=== PATIENT | male | born 1935 | race Caucasian/White ===

== ENCOUNTER → 2016-12-09 | Outpatient (REF) | payer MEDICARE, BC ==
[2016-12-09 12:42] LABS: MEAN CORPUSCULAR HEMOGLOBIN 32.6 pg (27.0-33.0); MEAN CORPUSCULAR HGB CONC 33.8 g/dl (32.0-36.5); MEAN CORPUSCULAR VOLUME 96.3 fl (80.0-96.0); RED CELL DISTRIBUTION WIDTH 12.3 % (11.5-14.5); WHITE BLOOD COUNT 7.3 K/mm3 (4.0-10.0)
[2016-12-09 13:02] LABS: ALBUMIN 3.8 GM/DL (3.2-5.2); ALBUMIN/GLOBULIN RATIO 1.15 (1.00-1.93); BILIRUBIN,TOTAL 0.5 MG/DL (0.2-1.0); CALCIUM LEVEL 9.5 MG/DL (8.8-10.2); CREATININE FOR GFR 1.25 MG/DL (0.70-1.30); GLOMERULAR FILTRATION RATE 59.2 (>35); TOTAL PROTEIN 7.1 GM/DL (6.4-8.2)
[2016-12-09 13:27] LABS: POTASSIUM SERUM 5.3 MEQ/L (3.5-5.1)
== END ==
LOC: M SFHCADAM 08:02
PROVIDERS: ATTEND Family Medicine
DX: E53.8 Deficiency of other specified B group vitamins (principal); I25.10 Atherosclerotic heart disease of native coronary artery without angina pectoris; E78.4 Other hyperlipidemia

== ENCOUNTER → 2017-07-16 | Outpatient (CLI) | payer MEDICARE, BC | LOC: M ADAMS 14:08 | DX: J40 Bronchitis, not specified as acute or chronic (principal) | CPT/HCPCS: 71020 ==

== ENCOUNTER → 2018-04-26 | Outpatient (REF) | payer MEDICARE, BC ==
[2018-04-26 12:49] LABS: HEMATOCRIT 46.9 % (42.0-52.0); HEMOGLOBIN 15.5 g/dl (13.5-17.5); MEAN CORPUSCULAR HEMOGLOBIN 31.9 pg (27.0-33.0); MEAN CORPUSCULAR VOLUME 96.5 fl (80.0-96.0); PLATELET COUNT, AUTOMATED 214 10^3/uL (150-450); RED BLOOD COUNT 4.86 10^6/uL (4.30-6.10); RED CELL DISTRIBUTION WIDTH 12.4 % (11.5-14.5); WHITE BLOOD COUNT 7.1 10^3/uL (4.0-10.0)
[2018-04-26 13:25] LABS: ALBUMIN/GLOBULIN RATIO 1.33 (1.00-1.93); ALKALINE PHOSPHATASE 66 U/L (45-117); ALT/SGPT 22 U/L (12-78); ANION GAP 7 MEQ/L (8-16); AST/SGOT 18 U/L (7-37); BILIRUBIN,TOTAL 0.4 MG/DL (0.2-1.0); BLOOD UREA NITROGEN 21 MG/DL (7-18); CALCIUM LEVEL 9.6 MG/DL (8.8-10.2); CARBON DIOXIDE LEVEL 30 MEQ/L (21-32); CHLORIDE LEVEL 106 MEQ/L (98-107); CHOLESTEROL LEVEL 138 MG/DL (<200); CREATININE FOR GFR 1.18 MG/DL (0.70-1.30); GLOMERULAR FILTRATION RATE > 60.0 (>35); GLUCOSE, FASTING 99 MG/DL (70-100); HDL CHOLESTEROL 75 MG/DL (>40); LDL CHOLESTEROL 47 MG/DL (<100); NON-HDL-C 63 MG/DL; POTASSIUM SERUM 5.5 MEQ/L (3.5-5.1); SODIUM LEVEL 143 MEQ/L (136-145); TRIGLYCERIDES LEVEL 81 MG/DL (<150)
== END ==
LOC: M SFHCADAM 10:47
DX: I25.10 Atherosclerotic heart disease of native coronary artery without angina pectoris (principal); E78.49 Other hyperlipidemia; E53.8 Deficiency of other specified B group vitamins
CPT/HCPCS: 82607

== ENCOUNTER → 2018-11-24 | Outpatient (REF) | payer MEDICARE, BC ==
[2018-11-24 13:39] LABS: HEMATOCRIT 47.2 % (42.0-52.0); HEMOGLOBIN 15.5 g/dl (13.5-17.5); MEAN CORPUSCULAR HGB CONC 32.8 g/dl (32.0-36.5); MEAN CORPUSCULAR VOLUME 97.3 fl (80.0-96.0); PLATELET COUNT, AUTOMATED 272 10^3/uL (150-450); RED BLOOD COUNT 4.85 10^6/uL (4.30-6.10); WHITE BLOOD COUNT 7.1 10^3/uL (4.0-10.0)
[2018-11-24 13:42] LABS: APPEARANCE, URINE CLEAR (CLEAR); BACTERIA, URINE AUTO NEGATIVE (NEGATIVE); BILIRUBIN, URINE AUTO NEGATIVE (NEGATIVE); BLOOD, URINE BLOOD NEGATIVE (NEGATIVE); COLOR, URINE YELLOW (YELLOW); GLUCOSE, URINE (UA) AUTO NEGATIVE (NEGATIVE); KETONE, URINE AUTO NEGATIVE (NEGATIVE); LEUKOCYTE ESTERASE, URINE AUTO NEGATIVE (NEGATIVE); NITRITE, URINE AUTO NEGATIVE (NEGATIVE); PROTEIN, URINE AUTO NEGATIVE (NEGATIVE); RBC, URINE AUTO 0 /HPF (0-3); SPECIFIC GRAVITY URINE AUTO 1.015 (1.002-1.035); SQUAMOUS EPITHELIAL CELL UR AU 0 /HPF (0-6); UROBILINOGEN, URINE AUTO 0.2 mg/dL (0.0-2.0); WBC, URINE AUTO 0 /HPF (0-3)
[2018-11-24 14:01] LABS: ALBUMIN 4.1 GM/DL (3.2-5.2); BILIRUBIN,TOTAL 0.5 MG/DL (0.2-1.0); CREATININE FOR GFR 1.24 MG/DL (0.70-1.30); FREE T4 1.02 NG/DL (0.76-1.46); GLOMERULAR FILTRATION RATE 59.4 (>35); POTASSIUM SERUM 4.4 MEQ/L (3.5-5.1); THYROID STIMULATING HORMONE 0.859 uIU/ML (0.358-3.740); TOTAL PROTEIN 6.8 GM/DL (6.4-8.2)
== END ==
LOC: M SFHCADAM 08:49
PROVIDERS: ATTEND Family Medicine
DX: R39.198 Other difficulties with micturition (principal); Z87.440 Personal history of urinary (tract) infections; R53.83 Other fatigue; I11.9 Hypertensive heart disease without heart failure; E53.8 Deficiency of other specified B group vitamins; Z12.5 Encounter for screening for malignant neoplasm of prostate
CPT/HCPCS: 80053; 81001; 82607; 84439; 84443; 85027; 87086; G0103

== ENCOUNTER → 2018-11-24 | Outpatient (CLI) | payer MEDICARE, BC ==
--- NOTE | 2018-11-24 11:29 | REP ---
Chest x-ray: Three views. History: Fatigue. Comparison study: July 16, 2017. Findings: Three views of the chest show clear symmetrically aerated lungs and sharp pleural angles. Cardiomediastinal silhouette is unremarkable. There are degenerative changes in the thoracic spine. No acute bony abnormality is seen. Impression: No active disease. Electronically Signed by Zeke Dooley MD 11/24/2018 11:20 A
== END ==
LOC: M ADAMS 09:06
PROVIDERS: ATTEND Family Medicine
DX: M51.34 Other intervertebral disc degeneration, thoracic region (principal); R53.83 Other fatigue; Z12.5 Encounter for screening for malignant neoplasm of prostate
CPT/HCPCS: 71046; 80053; 81001; 82607; 84439; 84443; 85027; 87086; G0103

== ENCOUNTER → 2019-04-17 | Outpatient (RCR) | payer MEDICARE, BC ==
--- NOTE | 2019-03-30 10:55 | CARECAPL ---
Assessment Account #s: Initial Assessment General Diagnoses: CABG (4 vessel) Date of event: Feb 02, 2019 Physician: Frantz Suarez Allergies: Coded Allergies: No Known Allergies (Unverified , 03/30/19) Date Entered Program: Mar 30, 2019 Risk strat for cardiac event: High Exercise Date: Mar 30, 2019 Assessment: Initial Assessment Stages of change: action Exercise Prescription Plan to educate about cardiac disease, and to build strength and endurance through a monitored exercise program Modalities initiated: Treadmill (will add), Cardio-Strider, Nustep (will add), Arm Aerometer (will add), Dumbells (will add), Recumbent Bike (will add) Frequency: 2-3 Duration (Minutes) 30 - 60 minutes total exercise a day. 15 - 20 work intervals in minutes. PRN rest intervals in minutes. Functional Capacity Goal Sustained Metabolic Equivalent of a task (MET) goal of 3-4 for 30-60 minutes. Intensity: 3-Moderate Progression (METS) Increase by: .5 METS every: 2-3 sessions Hypertension: Yes Hypertension controlled with: Other (exercise) Resting 128/80 Medications Scheduled Aspirin (Ecotrin), 1 TAB PO DAILY, (Reported) Clopidogrel Bisulfate (Plavix), 1 TAB PO DAILY, (Reported) Cyanocobalamin (Vitamin B-12) (Vitamin B-12), 1,000 MCG PO DAILY, (Reported) Ferrous Gluconate (Ferrous Gluconate), 1 TAB PO BID, (Reported) Lisinopril (Lisinopril), 10 MG PO DAILY, (Reported) Metoprolol Succinate (Metoprolol Succinate), 25 MG PO DAILY, (Reported) Simvastatin (Simvastatin), 1 TAB PO QPM, (Reported) Tamsulosin HCl (Flomax), 0.4 MG PO DAILY, (Reported) Scheduled PRN Docusate Sodium (Stool Softener), 100 MG PO DAILY PRN for CONSTIPATION, (Reported) Hydrocodone/Acetaminophen (Hydrocodone-Acetamin 5-325 mg), 1-2 TAB PO Q4-6HP PRN for pain, (Reported) Naproxen Sodium (Aleve), 220 MG PO Q6HP PRN for PAIN, (Reported) Target Goals Individual exercise Rx (1) BP 140/90 or 130/80 if DM or CKD (1) Aerobic active 30+min 5 days per week (1) Nutrition Date: Mar 30, 2019 Assessment: Initial Assessment Stages of change: action Lipid- med/supplement Simavastatin Diabetes Diabetes: No Special Diet: low salt, low-fat Vitamin/Supplements: Vitamin B Diet Access Tool: Rate your plate Score: 49 Intervention Diet Class: No (will see during program) Target goal LDL-C<100 if triglycerides are >200 Non-HDL-C should be <130 (1) LDL-C<70 for high risk patients (4) HbA1c<7% (1) BMI<25 Waist cir<40in M/<35in F (1) Education Date: Mar 30, 2019 Assessment: Initial Assessment Knowledge Test Score: 2 Stages of change: Pre-contemplation Family Support: Yes Tobacco use: No Quit: never smoked Tobacco Use Smokeless tobacco: No Target Goals Complete cessation of tobacco use (1). Psychosocial Date: Mar 30, 2019 Assessment: Initial Assessment Psych Test (Initial/Discharge) Tool Used: Other (PHQ-9) Score: 1 (minimal depression) Stages of change: action Target Goal Assess presence or absence of depression using a valid screening tool (1). Maximize coping skills (2). Positive support system (2). Patient/Program Goal Preventative Medication: Yes Aspirin, Yes Clopidogrel, Yes Beta blockade, Yes Statin/OTR lipid Lowering Fall Risk Assess: No Provider Assessment Provider Assessment: Proceed with rehab Cindy Taylor RN Mar 30, 2019 10:55
[~2019-04-17] MED LIST: B-12100010 PO; DOCU-129 PO; ECOT81TA5 PO; FERR325T16 PO; FLOM0.4C39 PO; HYDR-3713 PO; LISI10TA4 PO; METO1TAB32 PO; NAPR220C14 PO; PLAV1TAB2 PO; SIMV40TA2 PO
--- NOTE | 2019-04-17 13:30 | CARECAPL ---
Assessment Account #s: Re-Assessment I General Diagnoses: CABG Date of event: Feb 02, 2019 Physician: Frantz Suarez Allergies: Coded Allergies: No Known Allergies (Unverified , 03/30/19) Date Entered Program: Mar 30, 2019 Risk strat for cardiac event: High Exercise Date: Apr 17, 2019 Assessment: Re-Assessment I Stages of change: Contemplate Exercise Prescription Plan educate on cardiovascular disease and increase endurance, strength and flexibility through monitored exercise program. Modalities initiated: Treadmill (speed 1.2 incline 1.5 for 10 minutes mets 2.09 RPE 2), Nustep (resistance of 5 for 15 minutes mets 3.1 RPE 2), Arm Aerometer (resistance of 1.5 for 10 minutes mets 2.5 RPE 2), Dumbells (4 pound weights for 6 minutes 1 set 15 reps RPE 3), Recumbent Bike (resistance of 1 for 7 minutes mets 2.6 RPE 2) Frequency: 2-3 Duration (Minutes) 30 - 60 minutes total exercise a day. 15 - 20 work intervals in minutes. PRN rest intervals in minutes. Functional Capacity Goal Sustained Metabolic Equivalent of a task (MET) goal of 3.5-4.5 for 15-20 minutes. Intensity: 3-Moderate Progression (METS) Increase by: 0.5 METS every: 3-5 sessions Angina with ex: No Target Heart Rate Rest +35-40 per beta victorina therapy Resistance Training: Yes Weight (pounds): 4 Reps: 12-15 Hypertension: Yes Hypertension controlled with: Medication Resting 130/84 Peak Exercise BP 142/90 Meds Metoprolol and lisinopril Medications Scheduled Aspirin (Ecotrin), 1 TAB PO DAILY, (Reported) Clopidogrel Bisulfate (Plavix), 1 TAB PO DAILY, (Reported) Cyanocobalamin (Vitamin B-12) (Vitamin B-12), 1,000 MCG PO DAILY, (Reported) Ferrous Gluconate (Ferrous Gluconate), 1 TAB PO BID, (Reported) Lisinopril (Lisinopril), 10 MG PO DAILY, (Reported) Metoprolol Succinate (Metoprolol Succinate), 25 MG PO DAILY, (Reported) Simvastatin (Simvastatin), 1 TAB PO QPM, (Reported) Tamsulosin HCl (Flomax), 0.4 MG PO DAILY, (Reported) Scheduled PRN Docusate Sodium (Stool Softener), 100 MG PO DAILY PRN for CONSTIPATION, (Reported) Hydrocodone/Acetaminophen (Hydrocodone-Acetamin 5-325 mg), 1-2 TAB PO Q4-6HP PRN for pain, (Reported) Naproxen Sodium (Aleve), 220 MG PO Q6HP PRN for PAIN, (Reported) Intervention Education: Low NA diet (patient describes low-sodium diet and he adds no salt to his food and he uses no can or prepared frozen vegetables), RPE Scale (patient demonstrates independently), Equipment orientation (patient needs minimal verbal cueing), warm up/cool down (patient demonstrates independently) Education Goals Met: No (will continue to educate) Target Goals Individual exercise Rx (1) BP 140/90 or 130/80 if DM or CKD (1) Aerobic active 30+min 5 days per week (1) Nutrition Date: Apr 17, 2019 Assessment: Re-Assessment I Stages of change: Contemplate Med Change: No Monitor Blood Sugar at home: No Current Weight (pounds): 189 Intervention Manager Willow Consult: No Nurse/patient discussion: Yes Dietary Goals Eat healthier portions Diet Class: No Education Goals Met: No (will continue to educate) Target goal LDL-C<100 if triglycerides are >200 Non-HDL-C should be <130 (1) LDL-C<70 for high risk patients (4) HbA1c<7% (1) BMI<25 Waist cir<40in M/<35in F (1) Education Date: Apr 17, 2019 Assessment: Re-Assessment I Stages of change: Contemplate Education Goals Met: No (will continue to educate) Target Goals Complete cessation of tobacco use (1). Psychosocial Date: Apr 17, 2019 Assessment: Re-Assessment I Stages of change: Contemplate Med Change: No Education Goals Met: No (will continue to educate) Target Goal Assess presence or absence of depression using a valid screening tool (1). Maximize coping skills (2). Positive support system (2). Patient/Program Goal Preventative Medication: Yes Beta blockade, Yes BABAR Inhibitor, Yes Statin/OTR lipid Lowering Fall Risk Assess: Yes (negative for fall risk) Provider Assessment Session Number: 5 Provider Assessment: Proceed with rehab (progressing well. Good attendance) Teressa Sapp RN Apr 17, 2019 13:30
== END ==
LOC: M CR 03-30 08:15
PROVIDERS: ATTEND Internal Medicine Cardiovascular Disease
DX: Z95.1 Presence of aortocoronary bypass graft (principal)

== ENCOUNTER 2019-05-15 11:16 | Outpatient (RCR) | payer MEDICARE, BC ==
--- NOTE | 2019-05-12 09:55 | CARECAPL ---
Assessment Account #s: Re-Assessment II General Diagnoses: CABG Date of event: Feb 02, 2019 Physician: Frantz Suarez Allergies: Coded Allergies: No Known Allergies (Unverified , 03/30/19) Date Entered Program: Mar 30, 2019 Risk strat for cardiac event: High Exercise Stages of change: Preperation Exercise Prescription Plan educate on cardiovascular disease and increase endurance, strength and flexi bility through a monitored exercise program. Modalities initiated: Treadmill (speed 1.4 incline 1.0 mets 2.27 RPE 3), Nustep (resistance of 6 for 20 minutes mets 4.0 RPE 3), Arm Aerometer (resistance of 4 for 10 minutes Mets 2.0 RPE 3), Dumbells (5lbs 1 set for 12 reps RPE 3), Recumbent Bike (Resistance of 3 for 10 minutes mets 6.2 RPE 3) Frequency: 2-3 Duration (Minutes) 30 - 60 minutes total exercise a day. 15 - 20 work intervals in minutes. PRN rest intervals in minutes. Functional Capacity Goal Sustained Metabolic Equivalent of a task (MET) goal of 3.5-4.5 for 15-20 minutes. Intensity: 3-Moderate Progression (METS) Increase by: 0.5 METS every: 3-5 sessions Angina with ex: No Target Heart Rate rest + 35-40 per beta victorina therapy. Resistance Training: Yes Weight (pounds): 5 Reps: 12-15 Medications Scheduled Aspirin (Ecotrin), 1 TAB PO DAILY, (Reported) Clopidogrel Bisulfate (Plavix), 1 TAB PO DAILY, (Reported) Cyanocobalamin (Vitamin B-12) (Vitamin B-12), 1,000 MCG PO DAILY, (Reported) Ferrous Gluconate (Ferrous Gluconate), 1 TAB PO BID, (Reported) Lisinopril (Lisinopril), 10 MG PO DAILY, (Reported) Metoprolol Succinate (Metoprolol Succinate), 25 MG PO DAILY, (Reported) Simvastatin (Simvastatin), 1 TAB PO QPM, (Reported) Tamsulosin HCl (Flomax), 0.4 MG PO DAILY, (Reported) Scheduled PRN Docusate Sodium (Stool Softener), 100 MG PO DAILY PRN for CONSTIPATION, (Reported) Hydrocodone/Acetaminophen (Hydrocodone-Acetamin 5-325 mg), 1-2 TAB PO Q4-6HP PRN for pain, (Reported) Naproxen Sodium (Aleve), 220 MG PO Q6HP PRN for PAIN, (Reported) Current BP 118/86 Med Change: No Intervention Education: Self pulse (Patient needs verbal cueing on taking his own pulse at present. ), Ex safety (patient states to stay hydrated with water and wear loose comfortable clothing while exercising.), S/S to report (Patient states to report chest pain with exercise, excessive sweating and nausea that is relieved by resting. ), BP medication (Patient states he is on Metoprolol to reduce his BP and lower his heart rate and lisinopril all to reduce BP and relieve the strain on his heart. ), Understand BP (patient understands his BP should be below 130/80), Physical Active (Patient states he should remain active by doing silver sneakers to maintain a healthy heart. ) Education Goals Met: No (will continue to educate through out program.) Target Goals Individual exercise Rx (1) BP 140/90 or 130/80 if DM or CKD (1) Aerobic active 30+min 5 days per week (1) Nutrition Date: May 12, 2019 Assessment: Re-Assessment II Stages of change: Preperation Med Change: No Diabetes Diabetes: No Current Weight (pounds): 188 Weight Goal patient will try to lose 2lbs by next assessment by eating healthier portions. Intervention Fence Installer Helper Consult: No Nurse/patient discussion: Yes Dietary Goals eating healthier portions. Diet Class: No Education Eating Healthy (Patient states he will eat more vegetables and whole grains in moderation. ) Education Goals Met: No (will continue to educate throughout program.) Target goal LDL-C<100 if triglycerides are >200 Non-HDL-C should be <130 (1) LDL-C<70 for high risk patients (4) HbA1c<7% (1) BMI<25 Waist cir<40in M/<35in F (1) Education Date: May 12, 2019 Assessment: Re-Assessment II Family Support: Yes Tobacco use: No Intervention Education: CAD (Patient states clogged arteries from high cholesterol causes CAD. ), Risk factors (Patient described over weight, diabetes and high cholesterol as a risk factors for CAD.), med compliance (patient states importance of taking medication as prescribed by MD to maintain a healthy heart. ), cardiac A&P ( patient needed verbal cueing on the 4 chambers of the heart and the electrical systems of the heart. ), Angina S/S (Patient described activity induced chest pain that goes away with rest. ), Sexuality (Patient states no sex until okay'd by . ) Education Goals Met: No (will continue through out program. ) Target Goals Complete cessation of tobacco use (1). Psychosocial Date: May 12, 2019 Assessment: Re-Assessment II Stages of change: Preperation Med Change: No Stress Management Class: Yes Uses Stress Management Skills: Yes Education Education: Coping Techniques (Patient states he should speak his feeling with his to reduce stress.), S/S depression (Patient described crying and withdrawal as s/s of depression. ), Relaxation Techniques (Patient stated he listens to music or watches TV to relax. ) Education Goals Met: No (will continue to educate throughout program. ) Target Goal Assess presence or absence of depression using a valid screening tool (1). Maximize coping skills (2). Positive support system (2). Patient/Program Goal Preventative Medication: Yes Aspirin, Yes Clopidogrel, Yes Beta blockade, Yes BABAR Inhibitor, Yes Statin/OTR lipid Lowering Fall Risk Assess: Yes (not a fall risk) Provider Assessment Session Number: 12 Provider Assessment: Proceed with rehab (progressing well at cardiac rehab. Attendance is good. ) Teressa Sapp RN May 12, 2019 09:55
== END 2019-05-18 ==
LOC: M CR 11:16
PROVIDERS: ATTEND Internal Medicine Cardiovascular Disease
DX: Z95.1 Presence of aortocoronary bypass graft (principal)

== ENCOUNTER 2019-06-14 10:23 | Outpatient (RCR) | payer MEDICARE, BC ==
--- NOTE | 2019-06-07 10:59 | CARECAPL ---
Assessment Account #s: Re-Assessment II General Diagnoses: CABG Date of event: Feb 02, 2019 Physician: Frantz Suarez Allergies: Coded Allergies: No Known Allergies (Unverified , 03/30/19) Date Entered Program: Mar 30, 2019 Risk strat for cardiac event: High Exercise Date: Jun 07, 2019 Assessment: Re-Assessment II Stages of change: Preperation Exercise Prescription Modalities initiated: Treadmill (1.5/2.0 MTS 2.56 RPE 3 15 MINUTES), Nustep (L5 MTS 4.4 RPE 3 15 MINUTES), Arm Aerometer (4.0 MTS 2.2 RPE 3), Dumbells, Recumbent Bike (R2 MTS 3.2 RPE 3 10 MINUTES) Duration (Minutes) 30 - 60 minutes total exercise a day. 15 - 20 work intervals in minutes. PRN rest intervals in minutes. Functional Capacity Goal Sustained Metabolic Equivalent of a task (MET) goal of for minutes. Progression (METS) Increase by: METS every: sessions Angina with ex: No Resistance Training: Yes Weight (pounds): 6 Reps: 8-12 Hypertension: Yes Hypertension controlled with: Medication Resting 132/80 Peak Exercise BP 190/94 Meds SEE BELOW Medications Scheduled Aspirin (Ecotrin), 1 TAB PO DAILY, (Reported) Clopidogrel Bisulfate (Plavix), 1 TAB PO DAILY, (Reported) Cyanocobalamin (Vitamin B-12) (Vitamin B-12), 1,000 MCG PO DAILY, (Reported) Ferrous Gluconate (Ferrous Gluconate), 1 TAB PO BID, (Reported) Lisinopril (Lisinopril), 10 MG PO DAILY, (Reported) Metoprolol Succinate (Metoprolol Succinate), 25 MG PO DAILY, (Reported) Simvastatin (Simvastatin), 1 TAB PO QPM, (Reported) Tamsulosin HCl (Flomax), 0.4 MG PO DAILY, (Reported) Scheduled PRN Docusate Sodium (Stool Softener), 100 MG PO DAILY PRN for CONSTIPATION, (Reported) Hydrocodone/Acetaminophen (Hydrocodone-Acetamin 5-325 mg), 1-2 TAB PO Q4-6HP PRN for pain, (Reported) Naproxen Sodium (Aleve), 220 MG PO Q6HP PRN for PAIN, (Reported) Current BP 124/80 AFTER EXERCISE Med Change: No Education Goals Met: No (SEE PRIOR itp FOR EDUCATION COVERED) Target Goals Individual exercise Rx (1) BP 140/90 or 130/80 if DM or CKD (1) Aerobic active 30+min 5 days per week (1) Nutrition Date: Jun 07, 2019 Assessment: Re-Assessment II Stages of change: Preperation Current Weight (pounds): 188 Intervention Diet Class: No (WILL SEE DURING PROGRAM) Education Goals Met: No (PROGRESSING TOWARD GOALS) Target goal LDL-C<100 if triglycerides are >200 Non-HDL-C should be <130 (1) LDL-C<70 for high risk patients (4) HbA1c<7% (1) BMI<25 Waist cir<40in M/<35in F (1) Education Date: Jun 07, 2019 Assessment: Re-Assessment II Intervention Education: CAD, Risk factors (DIET CHOICES, SMOKING, OVERWEIGHT, IN ACTIVITY, ACK THESE) Education Goals Met: No (PROGRESSING TOWARD GOALS) Target Goals Complete cessation of tobacco use (1). Psychosocial Date: Jun 07, 2019 Assessment: Re-Assessment II Target Goal Assess presence or absence of depression using a valid screening tool (1). Maximize coping skills (2). Positive support system (2). Provider Assessment Session Number: 19 Provider Assessment: No changes (EXCELLENT ATTITUDE TOWARD EXERCISE AND LIFE IN GENERAL) Cindy Taylor RN Jun 07, 2019 10:59
[~2019-06-14 10:23] MED LIST changes: -SIMV40TA2 PO; +SIMV40TA20 PO
== END 2019-06-17 ==
LOC: M CR 10:23
PROVIDERS: ATTEND Internal Medicine Cardiovascular Disease
DX: Z95.1 Presence of aortocoronary bypass graft (principal)

== ENCOUNTER 2019-06-26 09:15 | Outpatient (RCR) | payer MEDICARE, BC ==
--- NOTE | 2019-06-26 11:20 | CARECAPL ---
Assessment Account #s: Discharge General Diagnoses: CABG Date of event: Feb 02, 2019 Physician: Frantz Suarez Allergies: Coded Allergies: No Known Allergies (Unverified , 03/30/19) Date Entered Program: Apr 03, 2019 Risk strat for cardiac event: Low Exercise Date: Jun 26, 2019 Assessment: Followup/Discharge Stages of change: maintenance Exercise Prescription Modalities initiated: Treadmill (speed 1.5 incline 2.5 for 15 minutes Mets 2.77 RPE 2), Nustep (Resistance 5.5 for 15 minutes Mets 4.5 RPE 2.5), Arm Aerometer (Resistance of 4 for 10 minutes), Dumbells (8lb 2 sets for 15 reps RPE 2), Recumbent Bike (resistance of 2 for 10 minutes Mets 3.2 RPE 3) Frequency: 2-3 Duration (Minutes) 30 - 60 minutes total exercise a day. 15 - 20 work intervals in minutes. PRN rest intervals in minutes. Functional Capacity Goal Sustained Metabolic Equivalent of a task (MET) goal of for minutes. Intensity: 3-Moderate Progression (METS) Increase by: METS every: sessions Angina with ex: No Target Heart Rate rest + 35-40 per beta victorina therapy. Resistance Training: Yes Weight (pounds): 8 Reps: 12-15 Medications Scheduled Aspirin (Ecotrin), 1 TAB PO DAILY, (Reported) Clopidogrel Bisulfate (Plavix), 1 TAB PO DAILY, (Reported) Cyanocobalamin (Vitamin B-12) (Vitamin B-12), 1,000 MCG PO DAILY, (Reported) Ferrous Gluconate (Ferrous Gluconate), 1 TAB PO BID, (Reported) Lisinopril (Lisinopril), 10 MG PO DAILY, (Reported) Metoprolol Succinate (Metoprolol Succinate), 25 MG PO DAILY, (Reported) Simvastatin (Simvastatin), 1 TAB PO QPM, (Reported) Tamsulosin HCl (Flomax), 0.4 MG PO DAILY, (Reported) Scheduled PRN Docusate Sodium (Stool Softener), 100 MG PO DAILY PRN for CONSTIPATION, (Reported) Hydrocodone/Acetaminophen (Hydrocodone-Acetamin 5-325 mg), 1-2 TAB PO Q4-6HP PRN for pain, (Reported) Naproxen Sodium (Aleve), 220 MG PO Q6HP PRN for PAIN, (Reported) Current BP 118/68 Med Change: No Education Goals Met: Yes Target Goals Individual exercise Rx (1) BP 140/90 or 130/80 if DM or CKD (1) Aerobic active 30+min 5 days per week (1) Nutrition Date: Jun 26, 2019 Assessment: Followup/Discharge Stages of change: maintenance Med Change: No Diabetes Diabetes: No Weight Management Weight (lbs): 188 Waist Circumference (Inches): 42 Diet Access Tool: Rate your plate Score: 23 Education Goals Met: Yes Target goal LDL-C<100 if triglycerides are >200 Non-HDL-C should be <130 (1) LDL-C<70 for high risk patients (4) HbA1c<7% (1) BMI<25 Waist cir<40in M/<35in F (1) Education Date: Jun 19, 2019 Assessment: Followup/Discharge Knowledge Test Score: 8 Stages of change: maintenance Family Support: Yes Education Goals Met: Yes Target Goals Complete cessation of tobacco use (1). Psychosocial Date: Jun 26, 2019 Psych Test (Initial/Discharge) Tool Used: Other (PHQ-9) Score: 0 Stages of change: maintenance Med Change: No Stress Management Class: Yes Uses Stress Management Skills: Yes Education Goals Met: Yes Target Goal Assess presence or absence of depression using a valid screening tool (1). Maximize coping skills (2). Positive support system (2). Patient/Program Goal Preventative Medication: Yes Aspirin, Yes Clopidogrel, Yes Beta blockade, Yes BABAR Inhibitor, Yes Statin/OTR lipid Lowering Fall Risk Assess: Yes (no fall risk) Provider Assessment Session Number: 25 Provider Assessment: Please add/change: (discharged from program) Teressa Sapp RN Jun 26, 2019 11:20
== END 2019-07-18 ==
LOC: M CR 09:15
PROVIDERS: ATTEND Internal Medicine Cardiovascular Disease
DX: Z95.1 Presence of aortocoronary bypass graft (principal)

== ENCOUNTER → 2020-07-02 | Outpatient (REF) | payer MEDICARE, BC | LOC: M SFHCADAM 10:34 | PROVIDERS: ATTEND Family Medicine | DX: I25.10 Atherosclerotic heart disease of native coronary artery without angina pectoris (principal); E53.8 Deficiency of other specified B group vitamins; R06.00 Dyspnea, unspecified; I11.9 Hypertensive heart disease without heart failure ==

== ENCOUNTER → 2020-07-03 | Outpatient (REF) | payer MEDICARE, BC ==
[2020-07-03 13:37] LABS: HEMATOCRIT 49.7 % (42.0-52.0); HEMOGLOBIN 15.5 g/dl (13.5-17.5); MEAN CORPUSCULAR HEMOGLOBIN 30.5 pg (27.0-33.0); MEAN CORPUSCULAR HGB CONC 31.2 g/dl (32.0-36.5); MEAN CORPUSCULAR VOLUME 97.8 fl (80.0-96.0); PLATELET COUNT, AUTOMATED 285 10^3/uL (150-450); RED BLOOD COUNT 5.08 10^6/uL (4.30-6.10)
[2020-07-03 13:52] LABS: ALBUMIN 3.8 GM/DL (3.2-5.2); BILIRUBIN,TOTAL 0.3 MG/DL (0.2-1.0); CALCIUM LEVEL 9.2 MG/DL (8.8-10.2); CHOLESTEROL RISK RATIO 2.215 (<5); CREATININE FOR GFR 1.54 MG/DL (0.70-1.30); FREE T4 0.9 NG/DL (0.76-1.46); THYROID STIMULATING HORMONE 1.24 uIU/ML (0.358-3.740); TOTAL PROTEIN 6.8 GM/DL (6.4-8.2)
== END ==
LOC: M SFHCADAM 09:37
PROVIDERS: ATTEND Family Medicine
DX: I25.10 Atherosclerotic heart disease of native coronary artery without angina pectoris (principal); E53.8 Deficiency of other specified B group vitamins; R06.00 Dyspnea, unspecified; I11.9 Hypertensive heart disease without heart failure

== ENCOUNTER → 2020-11-13 | Outpatient (CLI) | payer MEDICARE, BC ==
[~2020-11-13] MED LIST changes: -DOCU-129 PO; +DOCU-153 PO; +FERR324T21 PO; -FERR325T16 PO; +LISI10TA22 PO; -LISI10TA4 PO
--- NOTE | 2020-11-13 10:43 | REP ---
INDICATION: ARTHRITIS. COMPARISON: 07/04/2015. TECHNIQUE: Two views left hip. FINDINGS: There is increased moderate joint space narrowing of the left hip joint. There is moderate subchondral sclerosis and cystic change in the femoral head. There is moderate spurring of the acetabulum as well as subchondral sclerosis. Mild vascular calcifications are seen in the soft tissues. No fracture or dislocation is visualized. IMPRESSION: Increased moderate arthritic changes. <Electronically signed by Catrachito Okeefe > 11/13/20 [id number]
== END ==
LOC: M ADAMS 09:51
PROVIDERS: ATTEND Family Medicine
DX: M16.12 Unilateral primary osteoarthritis, left hip (principal); N48.1 Balanitis; I25.10 Atherosclerotic heart disease of native coronary artery without angina pectoris; R73.03 Prediabetes
CPT/HCPCS: 73502; 80053; 80061; 83036; 85027; G0463

== ENCOUNTER → 2020-11-13 | Outpatient (REF) | payer MEDICARE, BC ==
[2020-11-13 13:12] LABS: HEMATOCRIT 49.6 % (42.0-52.0); HEMOGLOBIN 16.1 g/dl (13.5-17.5); MEAN CORPUSCULAR HGB CONC 32.5 g/dl (32.0-36.5); MEAN CORPUSCULAR VOLUME 95.6 fl (80.0-96.0); PLATELET COUNT, AUTOMATED 317 10^3/uL (150-450); RED BLOOD COUNT 5.19 10^6/uL (4.30-6.10); WHITE BLOOD COUNT 8.7 10^3/uL (4.0-10.0)
[2020-11-13 13:43] LABS: HEMOGLOBIN A1c 6.2 %
[2020-11-13 13:47] LABS: ALBUMIN 4.3 GM/DL (3.2-5.2); ALT/SGPT 19 U/L (12-78); BILIRUBIN,TOTAL 0.4 MG/DL (0.2-1.0); BLOOD UREA NITROGEN 20 MG/DL (7-18); CALCIUM LEVEL 9.7 MG/DL (8.8-10.2); CARBON DIOXIDE LEVEL 27 MEQ/L (21-32); CHLORIDE LEVEL 108 MEQ/L (98-107); CHOLESTEROL LEVEL 154 MG/DL (<200); CHOLESTEROL RISK RATIO 1.949 (<5); CREATININE FOR GFR 1.21 MG/DL (0.70-1.30); GLOMERULAR FILTRATION RATE > 60.0 (>35); GLUCOSE, FASTING 118 MG/DL (70-100); HDL CHOLESTEROL 79 MG/DL (>40); LDL CHOLESTEROL 55 MG/DL (<100); NON-HDL-C 75 MG/DL; POTASSIUM SERUM 4.6 MEQ/L (3.5-5.1); SODIUM LEVEL 141 MEQ/L (136-145); TOTAL PROTEIN 7.5 GM/DL (6.4-8.2); TRIGLYCERIDES LEVEL 100 MG/DL (<150)
== END ==
LOC: M SFHCADAM 09:41
PROVIDERS: ATTEND Family Medicine
DX: N48.1 Balanitis (principal); I25.10 Atherosclerotic heart disease of native coronary artery without angina pectoris; R73.03 Prediabetes

== ENCOUNTER → 2021-03-05 | Outpatient (CLI) | payer MEDICARE, BC ==
[~2021-03-05] MED LIST changes: +COLA100C5 PO; +MIRA3350 PO
== END ==
LOC: M LABSMTC 12:18
PROVIDERS: ATTEND Anesthesiology
DX: Z01.818 Encounter for other preprocedural examination (principal); Z11.52 Encounter for screening for COVID-19

== ENCOUNTER 2021-03-10 07:58 | Day surgery (SDC) | payer MEDICARE, BC ==
[~2021-03-10] VITALS: Ht 172.7 cm; Wt 86.2 kg
[~2021-03-10 07:58] MED LIST changes: -COLA100C5 PO; +CYCLOPENTOLATE 1% OPHTH SOLN 2 ML BTL OD SCH; +FLURBIPROFEN 0.03% OPHTH SOLN 2.5 ML OD SCH; +LIDOCAINE 1% SDV 5ML VIAL As Ordered ONE; +LR 1,000 ML IV SCH; -MIRA3350 PO; +PHENYLEPHRINE 2.5% OPHTH SOL 2ML OD SCH; +TETRACAINE 0.5% OPHTH SOLN 4ML OD SCH
[2021-03-10] MEDS ORDERED: fentaNYL 100 MCG/2 ML INJECTION (J3010) As Ordered ONE (08:45)
[2021-03-10] MEDS ORDERED: MIDAZOLAM INJ 2MG/2ML VIAL (J2250 PER 1MG) As Ordered ONE (08:45)
[2021-03-10] MEDS ORDERED: DUOVISC (0.50ML VISCOAT/0.85ML PROVISC) OPHTH KIT As Ordered ONE (11:16)
[2021-03-10 12:45] VITALS: BP 178/81
== END 2021-03-10 13:03 | disposition home or self-care (01) ==
LOC: M SDC 07:58
PROVIDERS: ATTEND Ophthalmology
DX: H25.11 Age-related nuclear cataract, right eye (principal); I11.9 Hypertensive heart disease without heart failure; Z95.5 Presence of coronary angioplasty implant and graft; Z95.1 Presence of aortocoronary bypass graft; I25.10 Atherosclerotic heart disease of native coronary artery without angina pectoris; E78.5 Hyperlipidemia, unspecified; R73.03 Prediabetes; M16.12 Unilateral primary osteoarthritis, left hip; N40.1 Benign prostatic hyperplasia with lower urinary tract symptoms; H91.93 Unspecified hearing loss, bilateral; Z79.899 Other long term (current) drug therapy; Z79.02 Long term (current) use of antithrombotics/antiplatelets; Z79.82 Long term (current) use of aspirin; Z88.8 Allergy status to other drugs, medicaments and biological substances
CPT/HCPCS: 66984; J2250; J3010; V2632

== ENCOUNTER → 2021-03-25 | Outpatient (REF) | payer MEDICARE, BC ==
[~2021-03-25] MED LIST changes: -CYCLOPENTOLATE 1% OPHTH SOLN 2 ML BTL OD SCH; -FLURBIPROFEN 0.03% OPHTH SOLN 2.5 ML OD SCH; -LIDOCAINE 1% SDV 5ML VIAL As Ordered ONE; -LR 1,000 ML IV SCH; -PHENYLEPHRINE 2.5% OPHTH SOL 2ML OD SCH; -TETRACAINE 0.5% OPHTH SOLN 4ML OD SCH
[2021-03-25 12:49] LABS: HEMATOCRIT 47.8 % (42.0-52.0); HEMOGLOBIN 15.4 g/dl (13.5-17.5)
[2021-03-25 13:21] LABS: ALBUMIN 3.7 GM/DL (3.2-5.2); PERCENT SATURATION 35.1 % (19.7-50.0); THYROID STIMULATING HORMONE 1.3 uIU/ML (0.358-3.740)
== END ==
LOC: M LABDRWAD 12:18
PROVIDERS: ATTEND Orthopaedic Surgery
DX: Z01.812 Encounter for preprocedural laboratory examination (principal); M25.552 Pain in left hip; E07.9 Disorder of thyroid, unspecified

== ENCOUNTER 2021-04-12 19:52 | Emergency (ER) | payer MEDICARE, BC ==
[~2021-04-12] VITALS: Ht 172.7 cm; Wt 86.4 kg
[2021-04-12] MEDS ORDERED: METHYLNALTREXONE BROMIDE 12 MG/0.6 ML VIAL (RELISTOR) SC ONE (21:00)
--- NOTE | 2021-04-12 23:02 | REPVR ---
PROCEDURE INFORMATION: Exam: XR Abdomen Exam date and time: 04/12/2021 8:44 PM Age: 86 years old Clinical indication: Constipation; Additional info: Constipation vs obstruction TECHNIQUE: Imaging protocol: XR of the abdomen. Views: 2 Views. Upright and supine views. COMPARISON: 1. DX HIP COMPLETE (AP/LAT) 11/13/2020 9:51 AM 2. DX CHEST 2 VIEW 11/24/2018 9:08:57 AM FINDINGS: Tubes, catheters and devices: Median sternotomy suture wires are in place. Gastrointestinal tract: There is a moderate to large amount of stool in the colon. No dilated loops of bowel are noted. No significant air-fluid levels are seen in the bowel. Intraperitoneal space: No free air is identified. Vasculature: Incidental note is made of small round calcifications in the pelvis, which are compatible with phleboliths. Bones/joints: Left total hip arthroplasty hardware was partially imaged. There are degenerative changes in the lumbar spine, which are not fully evaluated in this study. IMPRESSION: Moderate to large amount of stool in the colon. No radiographic evidence for a bowel obstruction. Electronically signed by: Magdaleno Rivas On 04/12/2021 23:02:00 PM
[2021-04-12] MEDS ORDERED: COLA100C5 PO (23:06)
[2021-04-12] MEDS ORDERED: MIRA3350 PO (23:06)
[2021-04-12 23:36] VITALS: BP 153/81
== END 2021-04-12 23:38 | disposition home or self-care (01) ==
LOC: M ED 19:52
DX: K59.00 Constipation, unspecified (principal); I10 Essential (primary) hypertension; E78.5 Hyperlipidemia, unspecified; N40.0 Benign prostatic hyperplasia without lower urinary tract symptoms; Z95.5 Presence of coronary angioplasty implant and graft; Z95.1 Presence of aortocoronary bypass graft; Z79.82 Long term (current) use of aspirin; Z79.899 Other long term (current) drug therapy

== ENCOUNTER → 2021-07-24 | Outpatient (CLI) | payer MEDICARE, BC ==
[~2021-07-24] MED LIST changes: +COLA100C5 PO; +MIRA3350 PO
== END ==
LOC: M ADAMS 09:50
PROVIDERS: ATTEND Family Medicine
DX: J06.9 Acute upper respiratory infection, unspecified (principal); I25.10 Atherosclerotic heart disease of native coronary artery without angina pectoris; I11.9 Hypertensive heart disease without heart failure; E78.49 Other hyperlipidemia; R73.03 Prediabetes
CPT/HCPCS: 71046; 80053; 80061; 83036; 83880; 84145; 85027; 87426; G0463

== ENCOUNTER → 2021-07-24 | Outpatient (REF) | payer MEDICARE, BC ==
[2021-07-24 13:10] LABS: HEMATOCRIT 49.5 % (42.0-52.0); HEMOGLOBIN 15.8 g/dl (13.5-17.5); MEAN CORPUSCULAR HEMOGLOBIN 29.9 pg (27.0-33.0); MEAN CORPUSCULAR HGB CONC 31.9 g/dl (32.0-36.5); MEAN CORPUSCULAR VOLUME 93.6 fl (80.0-96.0); PLATELET COUNT, AUTOMATED 338 10^3/uL (150-450); RED BLOOD COUNT 5.29 10^6/uL (4.30-6.10); WHITE BLOOD COUNT 8.7 10^3/uL (4.0-10.0)
[2021-07-24 13:45] LABS: ALBUMIN 3.7 GM/DL (3.2-5.2); BILIRUBIN,TOTAL 0.3 MG/DL (0.2-1.0); CALCIUM LEVEL 9.1 MG/DL (8.8-10.2); CHOLESTEROL RISK RATIO 2.383 (<5); CREATININE FOR GFR 1.46 MG/DL (0.70-1.30); GLOMERULAR FILTRATION RATE 48.9 (>35); POTASSIUM SERUM 4.3 MEQ/L (3.5-5.1); TOTAL PROTEIN 7.2 GM/DL (6.4-8.2)
== END ==
LOC: M SFHCADAM 09:43
PROVIDERS: ATTEND Family Medicine
DX: I25.10 Atherosclerotic heart disease of native coronary artery without angina pectoris (principal); J06.9 Acute upper respiratory infection, unspecified; I11.9 Hypertensive heart disease without heart failure; E78.49 Other hyperlipidemia; R73.03 Prediabetes

== ENCOUNTER → 2021-08-20 | Outpatient (REF) | payer MEDICARE, BC ==
[~2021-08-20] MED LIST changes: +NITR0.4S14 SL
[2021-08-20 12:22] LABS: BASO # 0.1 10^3/uL (0.0-0.2); BASO % 0.9 % (0.0-1.0); EOS # 0.3 10^3/uL (0.0-0.5); EOS % 3.5 % (0.0-3.0); HEMATOCRIT 46.9 % (42.0-52.0); HEMOGLOBIN 15.1 g/dl (13.5-17.5); LYMPH # 2.1 10^3/uL (1.5-5.0); LYMPH % 27.2 % (24.0-44.0); MEAN CORPUSCULAR HEMOGLOBIN 30.1 pg (27.0-33.0); MEAN CORPUSCULAR HGB CONC 32.2 g/dl (32.0-36.5); MEAN CORPUSCULAR VOLUME 93.6 fl (80.0-96.0); MONO # 0.8 10^3/uL (0.0-0.8); MONO % 9.8 % (2.0-8.0); NEUTROPHILS # 4.5 10^3/uL (1.5-8.5); PLATELET COUNT, AUTOMATED 325 10^3/uL (150-450); RED BLOOD COUNT 5.01 10^6/uL (4.30-6.10); WHITE BLOOD COUNT 7.8 10^3/uL (4.0-10.0)
[2021-08-20 12:31] LABS: INR 0.97; PROTHROMBIN TIME 13.3 SECONDS (12.7-14.5)
[2021-08-20 12:32] LABS: PARTIAL THROMBOPLASTIN TIME 28.9 SECONDS (25.9-37.0)
[2021-08-20 12:51] LABS: CALCIUM LEVEL 9.3 MG/DL (8.8-10.2); CREATININE FOR GFR 1.36 MG/DL (0.70-1.30); POTASSIUM SERUM 4.5 MEQ/L (3.5-5.1)
== END ==
LOC: M SFHCADAM 09:03
PROVIDERS: ATTEND Physician Assistant
DX: N47.1 Phimosis (principal)

== ENCOUNTER → 2021-09-01 | Outpatient (CLI) | payer MEDICARE, BC | LOC: M LABSMTC 10:44 | PROVIDERS: ATTEND Anesthesiology | DX: Z01.812 Encounter for preprocedural laboratory examination (principal); Z20.822 Contact with and (suspected) exposure to COVID-19 ==

== ENCOUNTER → 2021-09-05 | Day surgery (SDC) | payer MEDICARE, BC ==
[~2021-09-05] VITALS: Ht 172.7 cm; Wt 83.9 kg
[~2021-09-05] MED LIST changes: +ACETAMINOPHEN TAB 650MG DOSE (2X325MG) PO PRN; +BACITRACIN OINTMENT 30GM TUBE As Ordered ONE; +CIPROFLOXACIN 400 MG in IV 1 EA IV ONE; +LIDOCAINE 2% 100MG/5ML SDV (FOR ANES.) As Ordered ONE; +LIDOCAINE 5% OINT 30GM TUBE As Ordered ONE; +LR 1,000 ML IV ONE; +LR 1,000 ML IV SCH; +METOCLOPRAMIDE INJ 10MG/2ML VIAL (J2765 PER 1) IV PRN; +ONDANSETRON 4MG/2ML VIAL As Ordered ONE; +ONDANSETRON 4MG/2ML VIAL IV PRN; +OXYC1TAB23 PO; +PERCOCET 5MG/325MG TAB PO PRN; +PHENYLephrine 500MCG 5ML (100MCG/ML) SYRINGE As Ordered ONE; +VASOPRESSIN INJ 20 UNITS/ML VIAL As Ordered ONE; +ceFAZolin 2 GM/D5W 50 ML IV BAG (J0690 PER 500MG) As Ordered ONE; +ceFAZolin SOD 2 GM in IV 1 EA IV ONE; +dexameTHASONE 4 MG/ML 1ML VIAL (J1100 PER 1MG) As Ordered ONE; +fentaNYL 100 MCG/2 ML INJECTION As Ordered ONE; +fentaNYL 100 MCG/2 ML INJECTION IV PRN; +propofoL 200 MG/20 ML VIAL As Ordered ONE
[2021-09-05 11:05] VITALS: BP 167/80
== END | disposition home or self-care (01) ==
LOC: M SDC 06:11
PROVIDERS: ATTEND Urology
DX: N47.1 Phimosis (principal); I11.9 Hypertensive heart disease without heart failure; E11.9 Type 2 diabetes mellitus without complications; I25.10 Atherosclerotic heart disease of native coronary artery without angina pectoris; Z95.5 Presence of coronary angioplasty implant and graft; M16.12 Unilateral primary osteoarthritis, left hip; R53.83 Other fatigue; R06.02 Shortness of breath; G24.3 Spasmodic torticollis; Z86.16 Personal history of COVID-19; E78.5 Hyperlipidemia, unspecified; I25.2 Old myocardial infarction; N40.0 Benign prostatic hyperplasia without lower urinary tract symptoms; Z95.1 Presence of aortocoronary bypass graft; Z79.899 Other long term (current) drug therapy; Z79.02 Long term (current) use of antithrombotics/antiplatelets; Z79.82 Long term (current) use of aspirin; Z88.8 Allergy status to other drugs, medicaments and biological substances; Z96.642 Presence of left artificial hip joint
CPT/HCPCS: 54161; 88304; J0690; J1100; J2370; J2405; J3010

== ENCOUNTER → 2022-04-27 | Outpatient (CLI) | payer MEDICARE, BC ==
[~2022-04-27] MED LIST changes: -ACETAMINOPHEN TAB 650MG DOSE (2X325MG) PO PRN; -BACITRACIN OINTMENT 30GM TUBE As Ordered ONE; -CIPROFLOXACIN 400 MG in IV 1 EA IV ONE; -LIDOCAINE 2% 100MG/5ML SDV (FOR ANES.) As Ordered ONE; -LIDOCAINE 5% OINT 30GM TUBE As Ordered ONE; -LR 1,000 ML IV ONE; -LR 1,000 ML IV SCH; -METOCLOPRAMIDE INJ 10MG/2ML VIAL (J2765 PER 1) IV PRN; -ONDANSETRON 4MG/2ML VIAL As Ordered ONE; -ONDANSETRON 4MG/2ML VIAL IV PRN; -PERCOCET 5MG/325MG TAB PO PRN; -PHENYLephrine 500MCG 5ML (100MCG/ML) SYRINGE As Ordered ONE; -VASOPRESSIN INJ 20 UNITS/ML VIAL As Ordered ONE; -ceFAZolin 2 GM/D5W 50 ML IV BAG (J0690 PER 500MG) As Ordered ONE; -ceFAZolin SOD 2 GM in IV 1 EA IV ONE; -dexameTHASONE 4 MG/ML 1ML VIAL (J1100 PER 1MG) As Ordered ONE; -fentaNYL 100 MCG/2 ML INJECTION As Ordered ONE; -fentaNYL 100 MCG/2 ML INJECTION IV PRN; -propofoL 200 MG/20 ML VIAL As Ordered ONE
== END ==
LOC: M ADAMS 11:14
PROVIDERS: ATTEND Physician Assistant
DX: R53.83 Other fatigue (principal)

== ENCOUNTER → 2022-09-30 | Outpatient (REF) | payer MEDICARE, BC ==
[~2022-09-30] MED LIST changes: +CLOP75TA99 PO; -PLAV1TAB2 PO
[2022-09-30 13:10] LABS: HEMATOCRIT 47.7 % (42.0-52.0); HEMOGLOBIN 15.2 g/dl (13.5-17.5); MEAN CORPUSCULAR HEMOGLOBIN 31.3 pg (27.0-33.0); MEAN CORPUSCULAR HGB CONC 31.9 g/dl (32.0-36.5); MEAN CORPUSCULAR VOLUME 98.4 fl (80.0-96.0); PLATELET COUNT, AUTOMATED 316 10^3/uL (150-450); RED BLOOD COUNT 4.85 10^6/uL (4.30-6.10); WHITE BLOOD COUNT 8.4 10^3/uL (4.0-10.0)
[2022-09-30 13:13] LABS: ALBUMIN 3.8 G/DL (3.2-5.2); BILIRUBIN,TOTAL 0.3 MG/DL (0.3-1.2); CALCIUM LEVEL 9.2 MG/DL (8.3-10.6); CHOLESTEROL RISK RATIO 2.2 (<5); CREATININE FOR GFR 1.39 MG/DL (0.70-1.30); GLOMERULAR FILTRATION RATE 51.6 (>35); LDL CHOLESTEROL 54.8 MG/DL (<100); POTASSIUM SERUM 5.4 MMOL/L (3.5-5.1); TOTAL PROTEIN 6.6 G/DL (5.7-8.2)
[2022-09-30 13:14] LABS: FREE T4 1.03 NG/DL (0.89-1.76); THYROID STIMULATING HORMONE 1.89 uIU/ML (0.55-4.78)
[2022-09-30 13:31] LABS: HEMOGLOBIN A1c 6.2 % (4.0-6.0)
== END ==
LOC: M SFHCADAM 09:16
PROVIDERS: ATTEND Family Medicine
DX: I25.10 Atherosclerotic heart disease of native coronary artery without angina pectoris (principal); I11.9 Hypertensive heart disease without heart failure; R73.03 Prediabetes; E78.49 Other hyperlipidemia

== ENCOUNTER → 2023-03-24 | Outpatient (REF) | payer MEDICARE, BC ==
[2023-03-24 17:20] LABS: HEMATOCRIT 46.4 % (42.0-52.0); HEMOGLOBIN 14.9 g/dl (13.5-17.5); MEAN CORPUSCULAR HEMOGLOBIN 30.8 pg (27.0-33.0); MEAN CORPUSCULAR HGB CONC 32.1 g/dl (32.0-36.5); MEAN CORPUSCULAR VOLUME 96.1 fl (80.0-96.0); PLATELET COUNT, AUTOMATED 310 10^3/uL (150-450); RED BLOOD COUNT 4.83 10^6/uL (4.30-6.10); WHITE BLOOD COUNT 9.3 10^3/uL (4.0-10.0)
[2023-03-24 17:26] LABS: CREATININE FOR GFR 1.35 MG/DL (0.70-1.30); GLOMERULAR FILTRATION RATE 53.2 (>35); POTASSIUM SERUM 4.6 MMOL/L (3.5-5.1)
== END ==
LOC: M SFHCADAM 13:43
PROVIDERS: ATTEND Family Medicine
DX: E53.8 Deficiency of other specified B group vitamins (principal); R73.03 Prediabetes

== ENCOUNTER → 2023-09-28 | Outpatient (REF) | payer MEDICARE, BC ==
[~2023-09-28] MED LIST changes: -DOCU-153 PO; +STOO100C30 PO
[2023-09-28 17:27] LABS: ALBUMIN 3.7 G/DL (3.2-5.2); ALKALINE PHOSPHATASE 56 U/L (46-116); ALT/SGPT 23 U/L (7.0-40); AST/SGOT < 8 U/L (<34); BILIRUBIN,TOTAL 0.3 MG/DL (0.3-1.2); BLOOD UREA NITROGEN 24 MG/DL (9-23); CALCIUM LEVEL 8.9 MG/DL (8.3-10.6); CARBON DIOXIDE LEVEL 31 MMOL/L (20-31); CHLORIDE LEVEL 105 MMOL/L (98-107); CHOLESTEROL LEVEL 139 MG/DL (<200); CHOLESTEROL RISK RATIO 2.27 (<5); GLOMERULAR FILTRATION RATE > 60.0 (>35); GLUCOSE, FASTING 103 MG/DL (74-106); HDL CHOLESTEROL 61.2 MG/DL (>40); HEMATOCRIT 49.5 % (42.0-52.0); HEMOGLOBIN 15.8 g/dl (13.5-17.5); LDL CHOLESTEROL 38.8 MG/DL (<100); MEAN CORPUSCULAR HEMOGLOBIN 31.2 pg (27.0-33.0); MEAN CORPUSCULAR HGB CONC 31.9 g/dl (32.0-36.5); MEAN CORPUSCULAR VOLUME 97.8 fl (80.0-96.0); NON-HDL-C 77.8 MG/DL; PLATELET COUNT, AUTOMATED 336 10^3/uL (150-450); POTASSIUM SERUM 5.3 MMOL/L (3.5-5.1); RED BLOOD COUNT 5.06 10^6/uL (4.30-6.10); SODIUM LEVEL 139 MMOL/L (136-145); TOTAL PROTEIN 6.9 G/DL (5.7-8.2); TRIGLYCERIDES LEVEL 195 MG/DL (<150); VITAMIN B12 LEVEL 857 PG/ML (211-911); WHITE BLOOD COUNT 10.5 10^3/uL (4.0-10.0)
[2023-09-28 18:11] LABS: HEMOGLOBIN A1c 6.2 % (4.0-6.0)
== END ==
LOC: M SFHCADAM 14:16
PROVIDERS: ATTEND Family Medicine
DX: R73.03 Prediabetes (principal); E78.5 Hyperlipidemia, unspecified; E53.8 Deficiency of other specified B group vitamins

== ENCOUNTER → 2023-12-30 | Outpatient (CLI) | payer MEDICARE, BC | LOC: M ADAMS 14:10 | PROVIDERS: ATTEND Family Medicine | DX: I51.7 Cardiomegaly (principal); R06.09 Other forms of dyspnea ==

== ENCOUNTER → 2024-03-31 | Outpatient (REF) | payer MEDICARE, BC ==
[2024-03-31 18:46] LABS: HEMOGLOBIN 14.2 g/dl (13.5-17.5); MEAN CORPUSCULAR HEMOGLOBIN 30.5 pg (27.0-33.0); MEAN CORPUSCULAR HGB CONC 31.6 g/dl (32.0-36.5); MEAN CORPUSCULAR VOLUME 96.8 fl (80.0-96.0); PLATELET COUNT, AUTOMATED 403 10^3/uL (150-450); RED BLOOD COUNT 4.65 10^6/uL (4.30-6.10); WHITE BLOOD COUNT 10.4 10^3/uL (4.0-10.0)
[2024-03-31 18:52] LABS: ALBUMIN 3.6 G/DL (3.2-5.2); ALKALINE PHOSPHATASE 72 U/L (46-116); ALT/SGPT 16 U/L (7.0-40); AST/SGOT < 8 U/L (<34); BILIRUBIN,TOTAL 0.3 MG/DL (0.3-1.2); BLOOD UREA NITROGEN 22 MG/DL (9-23); CALCIUM LEVEL 9.3 MG/DL (8.3-10.6); CARBON DIOXIDE LEVEL 29 MMOL/L (20-31); CHLORIDE LEVEL 106 MMOL/L (98-107); CREATININE FOR GFR 1.48 MG/DL (0.70-1.30); GLOMERULAR FILTRATION RATE 47.8 (>35); GLUCOSE, FASTING 127 MG/DL (74-106); POTASSIUM SERUM 4.7 MMOL/L (3.5-5.1); SODIUM LEVEL 142 MMOL/L (136-145); TOTAL PROTEIN 6.7 G/DL (5.7-8.2)
[2024-03-31 18:53] LABS: FREE T4 1.21 NG/DL (0.89-1.76); HEMOGLOBIN A1c 6.1 % (4.0-6.0); THYROID STIMULATING HORMONE 0.999 uIU/ML (0.55-4.78)
== END ==
LOC: M SFHCADAM 14:40
DX: I11.9 Hypertensive heart disease without heart failure (principal); I25.10 Atherosclerotic heart disease of native coronary artery without angina pectoris; R73.03 Prediabetes

== ENCOUNTER → 2024-08-07 | Outpatient (CLI) | payer MEDICARE, BC ==
[2024-08-07 14:00] LABS: BASO # 0.1 10^3/uL (0.0-0.2); BASO % 0.6 % (0.0-1.0); EOS # 0.3 10^3/uL (0.0-0.5); EOS % 3.7 % (0.0-3.0); HEMATOCRIT 51.1 % (42.0-52.0); HEMOGLOBIN 16.2 g/dl (13.5-17.5); LYMPH % 24.1 % (24.0-44.0); MEAN CORPUSCULAR HEMOGLOBIN 29.7 pg (27.0-33.0); MEAN CORPUSCULAR HGB CONC 31.7 g/dl (32.0-36.5); MEAN CORPUSCULAR VOLUME 93.6 fl (80.0-96.0); MONO # 0.9 10^3/uL (0.0-0.8); NEUTROPHILS # 5.2 10^3/uL (1.5-8.5); PLATELET COUNT, AUTOMATED 319 10^3/uL (150-450); RED BLOOD COUNT 5.46 10^6/uL (4.30-6.10); WHITE BLOOD COUNT 8.5 10^3/uL (4.0-10.0)
[2024-08-07 14:21] LABS: HEMOGLOBIN A1c 6.2 % (4.0-6.0)
[2024-08-07 14:29] LABS: THYROID STIMULATING HORMONE 1.908 uIU/ML (0.55-4.78)
[2024-08-07 14:31] LABS: FREE T4 1.18 NG/DL (0.89-1.76)
[2024-08-07 14:33] LABS: ALBUMIN 3.6 G/DL (3.2-5.2); BILIRUBIN,TOTAL 0.5 MG/DL (0.3-1.2); CALCIUM LEVEL 9.3 MG/DL (8.3-10.6); CREATININE FOR GFR 1.27 MG/DL (0.70-1.30); POTASSIUM SERUM 4.9 MMOL/L (3.5-5.1); TOTAL PROTEIN 7.1 G/DL (5.7-8.2)
== END ==
LOC: M LABDRWAD 09:30
PROVIDERS: ATTEND Family Medicine
DX: R73.03 Prediabetes (principal); R53.83 Other fatigue

== ENCOUNTER → 2024-09-01 | Outpatient (CLI) | payer MEDICARE, BC | LOC: M ADAMS 12:29 | PROVIDERS: ATTEND Family Medicine | DX: R06.09 Other forms of dyspnea (principal) | CPT/HCPCS: 71046; G0463 ==

== ENCOUNTER 2024-11-28 14:27 | Emergency (ER) | payer MEDICARE, BC ==
[~2024-11-28] VITALS: Ht 172.7 cm; Wt 82.9 kg
[~2024-11-28 14:27] MED LIST changes: -FLOM0.4C39 PO; +TAMS-18 PO
[2024-11-28] MEDS ORDERED: DULC5TAB PO (14:46)
[2024-11-28 19:19] LABS: BASO # 0.1 10^3/uL (0.0-0.2); EOS # 0.2 10^3/uL (0.0-0.5); EOS % 1.9 % (0.0-3.0); HEMATOCRIT 50.8 % (42.0-52.0); HEMOGLOBIN 16.5 g/dl (13.5-17.5); LYMPH # 2.1 10^3/uL (1.5-5.0); LYMPH % 25.2 % (24.0-44.0); MEAN CORPUSCULAR HEMOGLOBIN 30.1 pg (27.0-33.0); MEAN CORPUSCULAR HGB CONC 32.5 g/dl (32.0-36.5); MEAN CORPUSCULAR VOLUME 92.7 fl (80.0-96.0); MONO # 0.7 10^3/uL (0.0-0.8); MONO % 8.7 % (2.0-8.0); NEUTROPHILS # 5.1 10^3/uL (1.5-8.5); NEUTROPHILS % 62.1 % (36.0-66.0); PLATELET COUNT, AUTOMATED 266 10^3/uL (150-450); RED BLOOD COUNT 5.48 10^6/uL (4.30-6.10); WHITE BLOOD COUNT 8.2 10^3/uL (4.0-10.0)
[2024-11-28 19:37] LABS: ALBUMIN 4.1 G/DL (3.2-5.2); BILIRUBIN,DIRECT 0.1 MG/DL (<0.4); BILIRUBIN,TOTAL 0.5 MG/DL (0.3-1.2); CALCIUM LEVEL 9.4 MG/DL (8.3-10.6); CREATININE FOR GFR 1.2 MG/DL (0.70-1.30); GLOMERULAR FILTRATION RATE 58.2 (>35); POTASSIUM SERUM 4.7 MMOL/L (3.5-5.1); TOTAL PROTEIN 7.6 G/DL (5.7-8.2)
[2024-11-28] MEDS ORDERED: MIRA3350 PO (19:53)
[2024-11-28] MEDS: MAGNESIUM CITRATE 300ML BTL PO ONE (20:10)
[2024-11-28 20:16] VITALS: BP 157/79; TEMP 98; O2SAT 94
== END 2024-11-28 20:17 | disposition home or self-care (01) ==
LOC: M ED 14:27
DX: M25.551 Pain in right hip (principal); M25.552 Pain in left hip; K59.00 Constipation, unspecified; Z79.1 Long term (current) use of non-steroidal anti-inflammatories (NSAID); Z79.899 Other long term (current) drug therapy

== ENCOUNTER 2025-05-27 14:21 | Emergency (ER) | payer MEDICARE, BC ==
[~2025-05-27] VITALS: Ht 175.3 cm; Wt 81.5 kg
[~2025-05-27 14:21] MED LIST changes: +CEFD300C PO; +DULC5TAB PO; +LOSA25TA13
[2025-05-27] MEDS: LIDOCAINE 2% 5 ML JELLY UROJET TOP ONE (14:56)
[2025-05-27 15:23] LABS: BASO # 0.1 10^3/uL (0.0-0.2); BASO % 0.6 % (0.0-1.0); EOS # 0.2 10^3/uL (0.0-0.5); EOS % 1.9 % (0.0-3.0); LYMPH # 1.4 10^3/uL (1.5-5.0); LYMPH % 15.8 % (24.0-44.0); MONO # 0.7 10^3/uL (0.0-0.8); MONO % 7.5 % (2.0-8.0); NEUTROPHILS # 6.6 10^3/uL (1.5-8.5); NEUTROPHILS % 73.5 % (36.0-66.0); PLATELET COUNT, AUTOMATED 306 10^3/uL (150-450)
[2025-05-27 15:51] LABS: CALCIUM LEVEL 9.0 MG/DL (8.3-10.6); CARBON DIOXIDE LEVEL 24.0 MMOL/L (20-31); CHLORIDE LEVEL 105.0 MMOL/L (98-107); CREATININE FOR GFR 1.34 MG/DL (0.70-1.30); GLOMERULAR FILTRATION RATE 50.6 (>35); POTASSIUM SERUM 4.3 MMOL/L (3.5-5.1); SODIUM LEVEL 140.0 MMOL/L (136-145)
[2025-05-27 16:25] LABS: KETONE, URINE AUTO RFX NEGATIVE (NEGATIVE); LEUKOCYTE ESTERASE UR AUTO RFX TRACE (NEGATIVE); MUCUS, URINE RFX SMALL (NEGATIVE); NITRITE, URINE AUTO RFX NEGATIVE (NEGATIVE); RBC, URINE AUTO RFX 1 /HPF (0-3); SQUAM EPITHELIAL CELL UR AURFX 0 /HPF (0-6); WBC, URINE AUTO RFX 4 /HPF (0-3)
[2025-05-27 16:45] VITALS: BP 127/76; TEMP 97.5; O2SAT 92
[2025-05-27] MEDS ORDERED: CEFD1CAP9 PO (16:45)
[2025-05-27] MEDS ORDERED: CEFDINIR 300 MG CAP PO ONE (16:45)
== END 2025-05-27 17:06 | disposition home or self-care (01) ==
LOC: M ED 14:21
DX: R33.9 Retention of urine, unspecified (principal); I10 Essential (primary) hypertension; E78.00 Pure hypercholesterolemia, unspecified; F03.90 Unspecified dementia, unspecified severity, without behavioral disturbance, psychotic disturbance, mood disturbance, and anxiety; Z79.1 Long term (current) use of non-steroidal anti-inflammatories (NSAID); Z79.2 Long term (current) use of antibiotics; Z79.899 Other long term (current) drug therapy